=== PATIENT | female | born 1980 | race Caucasian/White ===

== ENCOUNTER 2017-02-22 13:46 | Emergency (ER) | payer MEDICARE, OTHER ==
[~2017-02-22 13:46] MED LIST: BOTOX100 UNIT IM; D100 PO; KEPPRA1000 MG PO; KLONO1 PO; LAMICTAL25 PO; NEUR300 PO; NORCO1 TA1 PO; NORCO1 TA2 PO; OXYCONTIN60 MG PO; PERCOCET1 TA4 PO; PR25 PO; PRILO PO; TOPAMAX200 MG PO; TOPAMAX25 PO; VIST25 PO; VIST50 PO; [UNRECOGNIZED DRUG - REMARK] PO
[2017-02-22 18:22] LABS: WBC (NOT ORDERED) (RFLEX) 0 (0-5)
[2017-02-22 18:25] LABS: A/G RATIO 0.8 (0.7-1.9); CALCIUM, SERUM 8.5 MG/DL (8.5-10.4); CHLORIDE, SERUM 105 MMOL/L (96-112); CO2 (CARBON DIOXIDE) 29 MMOL/L (24-34); CREATININE 0.78 MG/DL (0.55-1.02); GFR AFRICAN AMERICAN 114 ML/MIN (>=60); GFR NON AFRICAN AMERICAN 98 ML/MIN (>=60); GLOBULIN 3.6 G/DL (2.5-4.1); POTASSIUM, SERUM 3.7 MMOL/L (3.5-5.3); SALICYLATE 2.3 MG/DL (-); SGOT(AST) 47 U/L (5-40); SGPT(ALT) 65 U/L (5-65); SODIUM, SERUM 140 MMOL/L (135-148); TOTAL BILIRUBIN 0.2 MG/DL (0-1.2); TOTAL PROTEIN 6.6 G/DL (6.0-8.5)
[2017-02-22 18:32] LABS: ACETAMINOPHEN LEVEL (TYLENOL) < 2.0 MCG/ML (10.0-20.0); ALCOHOL < 10 MG/DL (0); ALKALINE PHOSPHATASE 62 U/L (45-117); BUN (BLOOD UREA NITROGEN) 7 MG/DL (6-23); C-REACTIVE PROTEIN 16.4 MG/L (<8.0); GLUCOSE, SERUM 113 MG/DL (60-99)
[2017-02-22 18:33] LABS: ASCORBIC ACID (UR NOT ORDER) NEG (NEG); BILIRUBIN, URINE NEGATIVE (NEG); ER URINALYSIS TAT 0 Hrs 13 Mins; KETONE, URINE NEGATIVE (NEG); LEUKOCYTE ESTERASE(NOT OR NEG (NEG); NITRITE (URINE) NEG (NEG)
[2017-02-22 18:36] LABS: BASOPHILS 0.1 %; BASOPHILS ABSOLUTE 0.01 10/3/uL (0.0-0.16); EOSINOPHILS 1.8 %; EOSINOPHILS ABSOLUTE 0.13 10/3/uL (0.0-0.53); ER CBC TAT 0 Hrs 03 Mins; HEMOGLOBIN 11.8 g/dL (12.0-16.0); IMMATURE GRANULOCYTES 0.3 %; IMMATURE GRANULOCYTES ABSOLUTE 0.02 10/3/uL (0.0-0.11); LYMPHOCYTES 36.6 %; LYMPHOCYTES ABSOLUTE 2.63 10/3/uL (0.67-4.30); MEAN CORPUS HGB CONC 33.8 g/dL (32.0-36.0); MEAN CORPUSCULAR HEMOGLOB 29.6 pg (26.0-34.0); MEAN CORPUSCULAR VOLUME 87.7 fL (80-100); MEAN PLATELET VOLUME 10.7 fL (9.2-13.0); MONOCYTES 13.4 %; MONOCYTES ABSOLUTE 0.96 10/3/uL (0.21-1.20); NEUTROPHILS 47.8 %; NEUTROPHILS ABSOLUTE 3.44 10/3/uL (2.02-8.40); PLATELET COUNT 197 10/3/uL (150-400); RBC DISTRIBUTION WIDTH 14.7 % (12.0-16.0); RED CELL COUNT 3.98 10/6/uL (4.0-5.6); WHITE BLOOD CELLS 7.2 10/3/uL (4.5-10.5)
[2017-02-22 18:39] LABS: HEMATOCRIT 34.9 % (36.0-48.0); MANUAL DIFF NO %
[2017-02-22] MEDS ORDERED: CLEOTGEL TOP (18:40)
[2017-02-22] MEDS ORDERED: NEUR400 PO (18:41)
[2017-02-22] MEDS ORDERED: ROXICODONE15 MG PO (18:41)
[2017-02-22] MEDS ORDERED: ZANAFLEX 4 MG TA4 MG PO ×2 (18:42)
[2017-02-22 18:43] LABS: LACTATE 1.9 MMOL/L (0.3-2.4)
[2017-02-22] MEDS ORDERED: PROAIR HFA PO (18:43)
[2017-02-22] MEDS ORDERED: METANX PO (18:43)
[2017-02-22] MEDS ORDERED: DEMA10T PO (18:43)
[2017-02-22] MEDS ORDERED: PR25 PO (18:43)
[2017-02-22] MEDS ORDERED: KEPPRA500 PO (18:43)
[2017-02-22] MEDS ORDERED: AT25 PO (18:44)
[2017-02-22] MEDS ORDERED: OPANA ER10 MG PO (18:44)
[2017-02-22] MEDS ORDERED: VALIUM10 MG PO (18:44)
[2017-02-22] MEDS ORDERED: ULTRAM50 PO (18:45)
[2017-02-22] MEDS ORDERED: KETOROLAC IM (18:45)
[2017-02-22] MEDS ORDERED: PB30 PO (18:46)
[2017-02-22] MEDS ORDERED: CIP5 PO (18:48)
[2017-02-22 18:55] LABS: AMPHETAMINES (NOT ORD) NEG (NEG); BARBITURATES (NOT ORDERED NEG (NEG); BENZODIAZEPINES (NOT ORD) POS (NEG); CANNABINOIDS (THC) NEG (NEG); COCAINE (NOT ORDERED) NEG (NEG); OPIATES POS (NEG); PHENCYCLIDINE(PCP) NEG (NEG); TRICYCLICS NEG (NEG)
[2017-02-22 18:55] LABS: INTERNATIONAL NORMAL RATI 0.9 UNITS (-)
[2017-02-22 18:56] LABS: PARTIAL THROMBO TIME 29.1 SEC (22.5-37.2); PROTIME (NOT ORD) 12.4 SEC (12.0-14.5)
[2017-02-22 19:01] LABS: PROCALCITONIN <0.05 ng/mL (<0.5)
== END 2017-02-22 22:03 | disposition home or self-care (01) ==
LOC: ER 13:46
PROVIDERS: Hospitalist; Nurse Practitioner Family
DX: R56.9 Unspecified convulsions (principal); D64.9 Anemia, unspecified; R73.9 Hyperglycemia, unspecified; J44.9 Chronic obstructive pulmonary disease, unspecified; I10 Essential (primary) hypertension; K21.9 Gastro-esophageal reflux disease without esophagitis; F32.9 Major depressive disorder, single episode, unspecified; F41.9 Anxiety disorder, unspecified; F17.200 Nicotine dependence, unspecified, uncomplicated; Z87.442 Personal history of urinary calculi; Z88.1 Allergy status to other antibiotic agents; Z88.5 Allergy status to narcotic agent; Z88.6 Allergy status to analgesic agent; Z88.8 Allergy status to other drugs, medicaments and biological substances; Z91.018 Allergy to other foods; Z79.899 Other long term (current) drug therapy
CPT/HCPCS: 70450; 71010; 73030-RT; 73080-RT; 73130-RT; 80053; 80305; 80307; 81001; 83605; 84145; 84703; 85025; 85610; 85730; 86140; 87040; 93005; 96365; 96375; 99285; J1953; J2405